=== PATIENT | female | born 1960 | race Caucasian/White ===

== ENCOUNTER → 2016-10-06 | Outpatient (CLI) | payer MEDICARE, OTHER ==
[~2016-10-06] MED LIST: ACETAMINOPHEN PO; ALBUTEROL MININEB NEB; ALLERGY SHOTS SUBQ; AMITIZA PO; ASPIRIN PO; ASPIRIN81 M1; BANZEL400 MG; CALCITONIN-SAL3.7 ML; CALCIUM 500 + D1 TAB PO; CARAFATE PO; CENTRUM; CERTAVITE PO; CLARITIN10 MG PO; CORRECTOL5 MG PO; CYTOTEC PO; DEPAKOTE PO; DIASTAT ACUDIAL1 KIT; FORTICAL; GENTLE LAXATIVE10 MG; HEMOCYTE-F TABL1 TAB PO; IBUPROFEN PO; KEPPRA500 MG PO; KEPPRA750 MG PO; LACTULOSE10 G/15 M1 PO; LACTULOSE10 G/15 ML PO; LAMICTAL PO; LAMOTRIGINE200 MG; LEVOTHYROXINE75 MC1; LYRICA PO; MAG CITRATE; MILK OF MAGNESIA PO; MIRTAZAPINE30 M1; NITRO DUR; PEPCID PO; PRILOSEC PO; PROBIOTIC1 EACH; PROCTOZONE-HC; REMERON PO; REMERON15 MG; SENNA8.8 MG/5 M; SINGULAIR PO; SYNTHROID PO; VIMPAT200 MG PO; VITAMIN D 4001 UDTAB PO; VITAMIN D400 UNI2
== END | disposition home or self-care (01) ==
LOC: CSSDAY 10:24
DX: M81.0 Age-related osteoporosis without current pathological fracture (principal); Z79.899 Other long term (current) drug therapy
CPT/HCPCS: 96372; J0897

== ENCOUNTER → 2016-11-14 | Outpatient (CLI) | payer MEDICARE, OTHER ==
--- NOTE | ~2016-11-14 | US17 ---
[facility] A Service of [facility] RADIOLOGY TEXT RESULTS PATIENT: VIDHYA POWER LOCATION: [facility] : 60 UNIT #: [id number] AGE: [address]: Inder Milligan MD SEX: F ORDER DR: [id number] [facility] [address] [place], [place] [address] [id number] O MR#: [id number] Acc #: [id number] NAME: VIDHYA POWER : 1960 SEX: F STUDY DATE/TIME: 11/14/2016 15:05 UNIT: [facility] ROOM: STUDY DESCRIPTION: US Breast Bilateral Attending Physician: Inder Milligan Sr., M.D. Referring Physician: Inder Milligan Sr., M.D. Ordering Physician: Inder Milligan Sr., M.D. Primary Care Physician: Inder Milligan Sr., M.D. MEDICAL IMAGING REPORT This report is preliminary unless electronic signature is present EXAM Screening breast ultrasound 11/14/2016 INDICATION 56-year-old. Patient cannot tolerate screening mammography. FINDINGS Screening images of both breasts were obtained and compared with 01/31/2011. No masses or fluid collections are seen. Study shows normal fibroglandular breast tissue. IMPRESSION Negative screening bilateral breast ultrasound. Consider followup in 1 year. BIRADS: 1 Negative Dictated by... Gerhard Nugent Jr., M.D. THIS IS AN ELECTRONICALLY VERIFIED REPORT Gerhard Nugent Jr., M.D. at 11/15/2016 6:33 PM KIRTI/rebeca TD: 11/15/2016 12:57 JOB #: [id number] MEDICAL IMAGING REPORT Page 1 of 1 COPY
== END | disposition home or self-care (01) ==
LOC: CGUS 14:42
DX: Z12.39 Encounter for other screening for malignant neoplasm of breast (principal)
CPT/HCPCS: 76641